=== PATIENT | male | born 1970 ===

== ENCOUNTER → 2024-01-25 04:26 | Outpatient (CLI) | payer OTHER, SELFPAY ==
--- NOTE | 2024-01-25 10:20 | DI.RAD_ITS ---
Exam(s) XR KNEE LT 3V AP,LAT,JAVED EXAM: XR KNEE LT 3V AP,LAT,JAVED CLINICAL HISTORY: BRISEIDA KNEE PAIN, DISABILITY DETERMINATION, Z02.71. TECHNIQUE: 2D digital imaging was performed. Three views. COMPARISON: CR XR KNEE RT 3V AP,LAT,JAVED from 01/25/2024 FINDINGS: BONES: No acute fracture is present. No bony destructive lesion is seen. There is prominence of the medial aspect of the head of the fibula at the tibiofibular joint. The findings could be secondary t o degenerative changes or possible osteochondroma. JOINTS: The knee is normally aligned. No joint effusion is seen. The femoral tibial and patellofemora l joint spaces are maintained. SOFT TISSUE: Normal. IMPRESSION: Prominence and deformity at the medial aspect of the fibular head at the tibiofibular joint may be se condary to degenerative changes versus osteo chondroma. The exam is otherwise negative. DATA REPOSITORY: RADIATION DOSE DELIVERED:
--- NOTE | 2024-01-25 10:30 | DI.RAD_ITS ---
Exam(s) XR LUMBAR SPINE AP, LAT EXAM: XR LUMBAR SPINE AP, LAT CLINICAL HISTORY: LOW BACK PAIN, DISABILITY DETERMINATION, Z02.71. TECHNIQUE: 2D digital imaging was performed. Three views. COMPARISON: No exams were available for comparison FINDINGS: BONES: No fracture or destructive lesion. Vertebral body heights are maintained. Mild facet hypertro phy identified. DISKS: Severe narrowing of the L5-S1 disc space with endplate osteophytes. The remaining interverteb ral disc spaces are maintained. ALIGNMENT: Lumbar spinal alignment is within normal limits. SOFT TISSUE: Normal. IMPRESSION: Severe degenerative disc changes at L5-S1. Mild degenerative changes elsewhere. DATA REPOSITORY: RADIATION DOSE DELIVERED:
--- NOTE | 2024-01-25 10:35 | DI.RAD_ITS ---
Exam(s) XR KNEE RT 3V AP,LAT,JAVED EXAM: XR KNEE RT 3V AP,LAT,JAVED CLINICAL HISTORY: BRISEIDA KNEE PAIN, DISABILITY DETERMINATION, Z02.71. TECHNIQUE: 2D digital imaging was performed. Three views. COMPARISON: No exams were available for comparison FINDINGS: BONES: No acute fracture is present. No bony destructive lesion is seen. JOINTS: The knee is normally aligned. No joint effusion is seen. The femoral tibial joint spaces an d patellofemoral joint spaces are maintained. No significant degenerative changes. There are modera te degenerative changes with spurring at the proximal tibial fibular joint. SOFT TISSUE: Normal. IMPRESSION: Moderate degenerative changes at the proximal tibial fibular joint. Normal patellofemoral and femora l tibial joints. DATA REPOSITORY: RADIATION DOSE DELIVERED:
== END ==
PROVIDERS: Visit Provider Pediatrics Pediatric Rheumatology
DX: Z02.71 Encounter for disability determination (principal)
CPT/HCPCS: 73562; 72100

== ENCOUNTER → 2024-04-10 03:56 | Outpatient (CLI) | payer OTHER, SELFPAY ==
--- NOTE | 2024-04-10 | DI.RAD_ITS ---
Exam(s) XR HIP LT COMPLETE AP PELVIS EXAM: XR HIP LT COMPLETE AP PELVIS CLINICAL HISTORY: Z02.71 Hip/pelvic pain,Disability determination,state serverity,? mild. TECHNIQUE: 2D digital imaging was performed of the left hip. Three views were obtained. AP pelvis and lateral left hip views were obtained. COMPARISON: No exams were available for comparison FINDINGS: BONES: No acute fracture is present. No bony destructive lesion is seen. JOINTS: No dislocation present. The left hip is well maintained and unremarkable. The sacroiliac claribel nts and symphysis pubis are unremarkable. The right hip is unremarkable. SOFT TISSUE: Normal. IMPRESSION: Unremarkable radiographs of the left hip. DATA REPOSITORY: RADIATION DOSE DELIVERED:
== END ==
PROVIDERS: PCP Nurse Practitioner Adult Health; Visit Provider Pediatrics Pediatric Rheumatology
DX: Z02.71 Encounter for disability determination (principal)
CPT/HCPCS: 73502